=== PATIENT | male | born 1975 | race Native Hawaiian/Other Pacific Islander ===

== ENCOUNTER 2021-02-21 15:14 | Emergency (ER) | payer OTHER ==
[~2021-02-21] VITALS: Ht 165.1 cm; Wt 98.0 kg
[~2021-02-21 15:14] MED LIST: HYDR10TA47 PO; MOBIC15 MG PO
[2021-02-21 15:30] VITALS: TEMP 97.3
[2021-02-21 16:45] VITALS: BP 136/90
== END 2021-02-21 16:45 | disposition home or self-care (01) ==
LOC: ED 15:14
DX: S60.221A Contusion of right hand, initial encounter (principal); W20.8XXA Other cause of strike by thrown, projected or falling object, initial encounter; Y92.89 Other specified places as the place of occurrence of the external cause
CPT/HCPCS: 99282

== ENCOUNTER 2021-07-20 13:17 | Emergency (ER) | payer OTHER ==
[~2021-07-20] VITALS: Ht 165.1 cm; Wt 113.9 kg
[2021-07-20 14:15] LABS: PLATELET COUNT 310 K/uL (142-355)
[2021-07-20 14:22] LABS: POTASSIUM 4.4 mmol/L (3.6-5.2)
[2021-07-20 16:00] VITALS: BP 136/95; TEMP 97.6
== END 2021-07-20 16:00 | disposition home or self-care (01) ==
LOC: ED 13:17
PROVIDERS: Emergency Medicine
DX: K52.89 Other specified noninfective gastroenteritis and colitis (principal); R94.5 Abnormal results of liver function studies; Z20.822 Contact with and (suspected) exposure to COVID-19
CPT/HCPCS: 36415; 80053; 81000; 82150; 83690; 85027; 87502; 87635; 96360; 96375; 99284; J2270; Q9963; U0003